=== PATIENT | male | born 1945 ===

== ENCOUNTER 2018-08-02 13:58 | Observation (INO) | payer MEDICARE ==
[2018-08-02 14:40] LABS: BASO % 0.3 % (0.0-2.0); EOS # 0.1 K/uL (0.0-0.7); EOS % 0.9 % (0.0-4.0); HEMOGLOBIN 10.8 g/dL (12.0-18.0); LYMPH # 2.1 K/uL (1.0-4.3); LYMPH % 23.5 % (20.0-40.0); MEAN CORPUSCULAR HEMOGLOBIN 25.5 pg (27.0-31.0); MEAN CORPUSCULAR HGB CONC 33.1 g/dL (33.0-37.0); MEAN PLATELET VOLUME 7.4 fL (7.2-11.7); MONO # 0.8 K/uL (0.0-0.8); MONO % 8.5 % (0.0-10.0); NEUT % 66.8 % (50.0-75.0); RBC 4.23 Mil/uL (4.40-5.90); RED CELL DISTRIBUTION WIDTH 17.1 % (11.5-14.5)
[2018-08-02 14:42] LABS: MEAN CELL VOLUME 77.3 fL (80.0-94.0)
[2018-08-02 14:49] LABS: PARTIAL THROMBOPLASTIN TIME 28.2 SECONDS (21-34); PROTHROMBIN TIME 11.2 SECONDS (9.7-12.2)
--- NOTE | 2018-08-02 14:58 | C.PDOC ---
History Of Present Illness 73-year-old male, whose PMHx includes HTN and Hypothyroidism, presents to the ED from home after reportedly having a syncopal episode prior to arrival. Patient states he had the syncopal episode while he was sitting on his couch. Patient states he was at baseline before and after the episode. He reports having a similar episode with unknown etiology while he was in [place]. Patient denies nausea, vomiting. Time Seen by Provider: 08/02/18 14:13 Chief Complaint (Nursing): Weakness/Neurological Deficit History Per: Patient History/Exam Limitations: no limitations Onset/Duration Of Symptoms: Hrs Current Symptoms Are (Timing): Still Present Past Medical History Reviewed: Historical Data, Nursing Documentation, Vital Signs Vital Signs: Last Vital Signs Temp 97.9 F 08/02/18 14:13 Pulse 74 08/02/18 14:13 Resp 16 08/02/18 14:13 BP 108/66 08/02/18 14:13 Pulse Ox 100 08/02/18 14:13 Primary Care Provider: Augie Fabian - Medical History PMH: HTN, Hypothyroidism Surgical History: No Surg Hx Family History: States: Unknown Family Hx - Social History Hx Alcohol Use: No Hx Substance Use: No - Immunization History Hx Tetanus Toxoid Vaccination: No Hx Influenza Vaccination: Yes Hx Pneumococcal Vaccination: No Review Of Systems Gastrointestinal: Negative for: Nausea, Vomiting Neurological: Positive for: Other (syncopal episode ) Physical Exam - Physical Exam Appears: Non-toxic, No Acute Distress Skin: Normal Color, Warm, Dry Head: Atraumatic, Normacephalic Eye(s): bilateral: Normal Inspection, PERRL, EOMI Oral Mucosa: Moist Neck: Supple Chest: Symmetrical, No Deformity, No Tenderness Cardiovascular: Rhythm Regular, No Murmur Respiratory: Normal Breath Sounds, No Rales, No Rhonchi, No Wheezing Gastrointestinal/Abdominal: Soft, No Tenderness, No Guarding, No Rebound Extremity: Normal ROM, Capillary Refill (less than 2 seconds) Neurological/Psych: Oriented x3, Normal Speech, Normal Cognition ED Course And Treatment - Laboratory Results Result Diagrams: 08/02/18 14:35 08/02/18 14:35 Lab Results: PT 11.2 SECONDS (9.7-12.2) 08/02/18 14:35 INR 1.0 08/02/18 14:35 APTT 28.2 SECONDS (21-34) 08/02/18 14:35 ECG: Interpreted By Me, Viewed By Me ECG Rhythm: Sinus Rhythm Interpretation Of ECG: Normal Sinus Rhythm at rate 72bpm. No ST/T wave changes. Rate From EC O2 Sat by Pulse Oximetry: 100 (on RA ) Pulse Ox Interpretation: Normal Medical Decision Making Medical Decision Making: syncope ro metabolic cardiac intracranil infecitous etioloyg Progress: Bloodwork, urinalysis, CXR, CT Head and EKG ordered and reviewed. ' labs ct neg. pt aystmpomatic in er. in nad. will obs. dr rick martinez accepts. Disposition - Disposition Disposition: HOSPITALIZED Disposition Time: 19:00 Condition: STABLE - Clinical Impression Clinical Impression: Syncope - Scribe Statement The provider has reviewed the documentation as recorded by the Scribe (Tabatha Nam) Provider Attestation: All medical record entries made by the Scribe were at my direction and personally dictated by me. I have reviewed the chart and agree that the record accurately reflects my personal performance of the history, physical exam, medical decision making, and the department course for this patient. I have also personally directed, reviewed, and agree with the discharge instructions and disposition. Decision To Admit - Pt Status Changed To: Hospital Disposition Of: Observation - . Bed Request Type: Telemetry Admitting Physician: Car Nam Patient Diagnosis: Syncope
[2018-08-02 15:00] LABS: ALB/GLOB RATIO 1.2 (1.0-2.1); ALBUMIN 3.7 g/dL (3.5-5.0); ALT/SGPT 19 U/L (21-72); AST/SGOT 25 U/L (17-59); BLOOD UREA NITROGEN 16 mg/dL (9-20); CALCIUM 8.9 mg/dl (8.6-10.4); GFR NON-AFRICAN AMERICAN 40
--- NOTE | 2018-08-02 15:22 | RAD ---
HISTORY: chest pain COMPARISON: None available TECHNIQUE: Chest, one view. FINDINGS: LUNGS: No focal consolidation. Please note that chest x-ray has limited sensitivity for the detection of pulmonary masses. PLEURA: No significant pleural effusion identified. No definite pneumothorax . CARDIOVASCULAR: Heart size appears top normal. Atherosclerotic calcifications of the aorta. OSSEOUS STRUCTURES: Osseous demineralization. Degenerative changes. VISUALIZED UPPER ABDOMEN: Unremarkable. OTHER FINDINGS: None. IMPRESSION: No acute findings identified. Incidental findings as above.
[2018-08-02 15:48] LABS: SQUAMOUS EPITHIAL 1 /hpf (0-5); URINE BACTERIA RARE (<OCC); URINE BILIRUBIN NEGATIVE (NEGATIVE); URINE BLOOD NEGATIVE (NEGATIVE); URINE CLARITY Clear (Clear); URINE COLOR Yellow (YELLOW); URINE GLUCOSE (UA) 1+ mg/dL (Normal); URINE HYALINE CAST >20 /lpf (0-2); URINE LEUKOCYTE ESTERASE NEG Leu/uL (Negative); URINE PROTEIN 2+ mg/dL (NEGATIVE); URINE UROBILINOGEN NORMAL mg/dL (0.2-1.0)
--- NOTE | 2018-08-02 16:21 | CT ---
Date of service: 08/02/2018 PROCEDURE: CT HEAD WITHOUT CONTRAST. HISTORY: syncope COMPARISON: None available TECHNIQUE: Axial computed tomography images were obtained through the head/brain without intravenous contrast. Radiation dose: Total exam DLP = 1086.07 mGy-cm. This CT exam was performed using one or more of the following dose reduction techniques: Automated exposure control, adjustment of the mA and/or kV according to patient size, and/or use of iterative reconstruction technique. FINDINGS: HEMORRHAGE: No intracranial hemorrhage. BRAIN: Diffuse atrophy with prominence of the ventricles and sulci noted. No mass effect or edema. Intracranial atherosclerosis. Moderate to severe scattered periventricular and subcortical white matter hypodensities, which are nonspecific, but often seen with chronic microvascular ischemic disease. Please note that MRI with diffusion imaging is more sensitive in the detection of acute ischemic event. VENTRICLES: No hydrocephalus. CALVARIUM: Unremarkable. PARANASAL SINUSES: Unremarkable as visualized. No significant inflammatory changes. MASTOID AIR CELLS: Unremarkable as visualized. No inflammatory changes. OTHER FINDINGS: None. IMPRESSION: Moderate to severe nonspecific white matter changes.
--- NOTE | 2018-08-02 21:22 | CP.PCM.HP ---
History of Present Illness - History of Present Illness History of Present Illness: 73-year-old [place] male non-smoker non-EtOH abuser with history of hypothyroidism history of hypertension not controlled not taking the medications regularly was brought in the emergency room with possible syncopal episode while sitting on the couch patient became weak was at the bedside eventually brought to the emergency room after a brief episode of few seconds as per the family and the daughter works in the hospital so I called the daughter daughter came up discussed with the patient's daughter and who is at bedside patient denied any tonic-clonic movement denied any headache denied any prior chest pain denied any prior dizziness just felt weak on one side eventually patient was hospitalized denies nausea vomiting hematochezia hematuria denies palpitation denies any heart problem Discussed with the PMD Medical History PMH: HTN, Hypothyroidism Surgical History: No Surg Hx Family History: States: Unknown Family Hx - Social History Hx Alcohol Use: No Hx Substance Use: No - Immunization History Hx Tetanus Toxoid Vaccination: No Hx Influenza Vaccination: Yes Hx Pneumococcal Vaccination: No Review Of Systems Gastrointestinal: Negative for: Nausea, Vomiting Neurological: Positive for: Other (syncopal episode ) resp no sob no chest pain cvs no chest pain skin senile muskuloskeltal no pain heent neg others as per hpi Present on Admission - Present on Admission Any Indicators Present on Admission: No Past Patient History - Infectious Disease Hx of Infectious Diseases: None - Past Social History Smoking Status: Never Smoked - CARDIAC Hx Hypertension: Yes - ENDOCRINE/METABOLIC Hx Hypothyroidism: Yes - PSYCHIATRIC Hx Substance Use: No - SURGICAL HISTORY Hx Surgeries: Yes Other/Comment: Lower back pain. - ANESTHESIA Hx Anesthesia: Yes Hx Anesthesia Reactions: No Hx Malignant Hyperthermia: No Meds Allergies/Adverse Reactions: Allergies Allergy/AdvReac Type Severity Reaction Status Date / Time No Known Allergies Allergy Verified 08/02/18 14:12 Physical Exam - Constitutional Appears: Well - Head Exam Head Exam: ATRAUMATIC, NORMAL INSPECTION, NORMOCEPHALIC - Eye Exam Eye Exam: EOMI, Normal appearance, PERRL Pupil Exam: NORMAL ACCOMODATION, PERRL - ENT Exam ENT Exam: Mucous Membranes Moist, Normal Exam - Neck Exam Neck exam: Positive for: Normal Inspection - Respiratory Exam Respiratory Exam: Decreased Breath Sounds - Cardiovascular Exam Cardiovascular Exam: REGULAR RHYTHM, +S1, +S2 - GI/Abdominal Exam GI & Abdominal Exam: Diminished Bowel Sounds, Soft - Rectal Exam Rectal Exam: Deferred - Neurological Exam Neurological exam: Oriented x3 Results - Vital Signs Recent Vital Signs: Last Vital Signs Temp 98.5 F 08/02/18 20:30 Pulse 66 08/02/18 20:30 Resp 18 08/02/18 20:30 BP 205/114 H 08/02/18 20:30 Pulse Ox 100 08/02/18 20:30 - Labs Result Diagrams: 08/04/18 07:59 08/04/18 07:59 Labs: Laboratory Results - last 24 hr 08/02/18 08/02/18 08/02/18 14:35 14:35 14:35 WBC 9.0 D RBC 4.23 L Hgb 10.8 L Hct 32.7 L MCV 77.3 L D MCH 25.5 L MCHC 33.1 RDW 17.1 H Plt Count 245 MPV 7.4 Neut % (Auto) 66.8 Lymph % (Auto) 23.5 [place] % (Auto) 8.5 Eos % (Auto) 0.9 Baso % (Auto) 0.3 Neut # (Auto) 6.0 Lymph # (Auto) 2.1 [place] # (Auto) 0.8 Eos # (Auto) 0.1 Baso # (Auto) 0.0 PT 11.2 INR 1.0 APTT 28.2 Sodium 138 Potassium 3.7 Chloride 107 Carbon Dioxide 19 L Anion Gap 16 BUN 16 Creatinine 1.7 H Est GFR ( Amer) 48 Est GFR (Non-Af Amer) 40 POC Glucose (mg/dL) Random Glucose 181 H D Calcium 8.9 Total Bilirubin 0.4 AST 25 ALT 19 L Alkaline Phosphatase 72 Troponin I < 0.0120 Total Protein 6.8 Albumin 3.7 Globulin 3.1 Albumin/Globulin Ratio 1.2 Urine Color Urine Clarity Urine pH Ur Specific [place] Urine Protein Urine Glucose (UA) Urine Ketones Urine Blood Urine Nitrate Urine Bilirubin Urine Urobilinogen Ur Leukocyte Esterase Urine WBC (Auto) Urine RBC (Auto) Ur Squamous Epith Cells Urine Bacteria Hyaline Casts 08/02/18 08/02/18 14:39 15:33 WBC RBC Hgb Hct MCV MCH MCHC RDW Plt Count MPV Neut % (Auto) Lymph % (Auto) [place] % (Auto) Eos % (Auto) Baso % (Auto) Neut # (Auto) Lymph # (Auto) [place] # (Auto) Eos # (Auto) Baso # (Auto) PT INR APTT Sodium Potassium Chloride Carbon Dioxide Anion Gap BUN Creatinine Est GFR ( Amer) Est GFR (Non-Af Amer) POC Glucose (mg/dL) 185 H Random Glucose Calcium Total Bilirubin AST ALT Alkaline Phosphatase Troponin I Total Protein Albumin Globulin Albumin/Globulin Ratio Urine Color Yellow Urine Clarity Clear Urine pH 6.0 Ur Specific [place] 1.013 Urine Protein 2+ H Urine Glucose (UA) 1+ H Urine Ketones Negative Urine Blood Negative Urine Nitrate Negative Urine Bilirubin Negative Urine Urobilinogen Normal Ur Leukocyte Esterase Neg Urine WBC (Auto) 5 Urine RBC (Auto) < 1 Ur Squamous Epith Cells 1 Urine Bacteria Rare Hyaline Casts >20 H Assessment & Plan - Assessment and Plan (Free Text) Plan: Moderate to high complexity of care. Plan of care discussed with patient &/or family & staff. Medications reviewed and reconciled. Labs reviewed. Vitals reviewed. hydralazine IV status post because of blood pressure more than 200 Aspirin Coreg Chlorothiazide Amlodipine Protonix Lovenox Cardiology consult with Dr. Levi Ndiaye Will order echo TAMIKA x3 every 8 Monitor the blood pressure closely Will slowly slowly control her blood pressure cardio
[2018-08-02 23:28] LABS: CK-MB 0.9 ng/mL (0.0-3.38); TROPONIN I 0.064 ng/mL (0.00-0.120)
[2018-08-03 07:31] LABS: CK-MB 0.73 ng/mL (0.0-3.38); TROPONIN I 0.065 ng/mL (0.00-0.120)
[2018-08-03] MEDS: Pantoprazole 40 mg EC Tab PO SCH (09:49)
[2018-08-03] MEDS ORDERED: Enoxaparin 40 mg Syringe SC SCH (10:45)
--- NOTE | 2018-08-03 14:35 | CP.PCM.CON ---
History of Present Illness - History of Present Illness History of Present Illness: 73 yo man, was in the chair, appeared to be asleep, his could not wake him. 911 was called. Pt is a non smoker, not a diabetic, has HTN. BP was 108/66 in the ER, now high today. Denies chest pressure or CYR. Translation provided daughter. No previou syncope ECG is nsr, mildly long QT, head ct neg. CR was 1.7, tni negative, mildly anemic According to his daughter, he has had a poor appetite and has lost weight. Review of Systems - Review of Systems All systems: reviewed and no additional remarkable complaints except (as above) Past Patient History - Infectious Disease Hx of Infectious Diseases: None - Past Social History Smoking Status: Never Smoked - CARDIAC Hx Hypertension: Yes - ENDOCRINE/METABOLIC Hx Hypothyroidism: Yes - PSYCHIATRIC Hx Substance Use: No - SURGICAL HISTORY Hx Surgeries: Yes Other/Comment: Lower back pain. - ANESTHESIA Hx Anesthesia: Yes Hx Anesthesia Reactions: No Hx Malignant Hyperthermia: No Meds Allergies/Adverse Reactions: Allergies Allergy/AdvReac Type Severity Reaction Status Date / Time No Known Allergies Allergy Verified 08/02/18 14:12 - Medications Medications: Current Medications Amlodipine Besylate (Norvasc) 10 mg PO DAILY [facility] Last Admin: 08/03/18 09:47 Dose: 10 mg Aspirin (Aspirin) 325 mg PO DAILY [facility] Last Admin: 08/03/18 09:46 Dose: 325 mg Carvedilol (Coreg) 6.25 mg PO DAILY [facility] Last Admin: 08/03/18 09:47 Dose: 6.25 mg Heparin Sodium (Porcine) (Heparin) 5,000 units SC Q12H [facility] Last Admin: 08/03/18 10:55 Dose: 5,000 units Hydrochlorothiazide (Microzide) 12.5 mg PO DAILY [facility] Last Admin: 08/03/18 09:47 Dose: 12.5 mg Pantoprazole Sodium (Protonix Ec Tab) 40 mg PO DAILY [facility] Last Admin: 08/03/18 09:49 Dose: 40 mg Physical Exam - Constitutional Appears: Older Than Stated Age - Head Exam Head Exam: ATRAUMATIC - Eye Exam Eye Exam: EOMI Pupil Exam: NORMAL ACCOMODATION - ENT Exam ENT Exam: Mucous Membranes Moist - Respiratory Exam Respiratory Exam: Clear to Auscultation Bilateral - Cardiovascular Exam Cardiovascular Exam: REGULAR RHYTHM - GI/Abdominal Exam GI & Abdominal Exam: Normal Bowel Sounds - Extremities Exam Extremities exam: Positive for: normal inspection - Back Exam Back exam: NORMAL INSPECTION - Neurological Exam Neurological exam: Alert, Oriented x3, Reflexes Normal - Psychiatric Exam Psychiatric exam: Normal Affect, Normal Mood - Skin Skin Exam: Dry, Normal Color Results - Vital Signs Recent Vital Signs: Last Vital Signs Temp 98.4 F 08/03/18 08:07 Pulse 66 08/03/18 12:33 Resp 20 08/03/18 08:07 BP 123/75 08/03/18 14:00 Pulse Ox 95 08/03/18 12:00 - Labs Result Diagrams: 08/02/18 14:35 08/02/18 14:35 Labs: Laboratory Results - last 24 hr 08/02/18 08/02/18 08/02/18 14:35 14:35 14:35 WBC 9.0 D RBC 4.23 L Hgb 10.8 L Hct 32.7 L MCV 77.3 L D MCH 25.5 L MCHC 33.1 RDW 17.1 H Plt Count 245 MPV 7.4 Neut % (Auto) 66.8 Lymph % (Auto) 23.5 [place] % (Auto) 8.5 Eos % (Auto) 0.9 Baso % (Auto) 0.3 Neut # (Auto) 6.0 Lymph # (Auto) 2.1 [place] # (Auto) 0.8 Eos # (Auto) 0.1 Baso # (Auto) 0.0 PT 11.2 INR 1.0 APTT 28.2 Sodium 138 Potassium 3.7 Chloride 107 Carbon Dioxide 19 L Anion Gap 16 BUN 16 Creatinine 1.7 H Est GFR ( Amer) 48 Est GFR (Non-Af Amer) 40 POC Glucose (mg/dL) Random Glucose 181 H D Calcium 8.9 Total Bilirubin 0.4 AST 25 ALT 19 L Alkaline Phosphatase 72 Total Creatine Kinase CK-MB (Mass) Troponin I < 0.0120 Total Protein 6.8 Albumin 3.7 Globulin 3.1 Albumin/Globulin Ratio 1.2 Urine Color Urine Clarity Urine pH Ur Specific [place] Urine Protein Urine Glucose (UA) Urine Ketones Urine Blood Urine Nitrate Urine Bilirubin Urine Urobilinogen Ur Leukocyte Esterase Urine WBC (Auto) Urine RBC (Auto) Ur Squamous Epith Cells Urine Bacteria Hyaline Casts 08/02/18 08/02/18 08/02/18 14:39 15:33 22:25 WBC RBC Hgb Hct MCV MCH MCHC RDW Plt Count MPV Neut % (Auto) Lymph % (Auto) [place] % (Auto) Eos % (Auto) Baso % (Auto) Neut # (Auto) Lymph # (Auto) [place] # (Auto) Eos # (Auto) Baso # (Auto) PT INR APTT Sodium Potassium Chloride Carbon Dioxide Anion Gap BUN Creatinine Est GFR ( Amer) Est GFR (Non-Af Amer) POC Glucose (mg/dL) 185 H Random Glucose Calcium Total Bilirubin AST ALT Alkaline Phosphatase Total Creatine Kinase 54 L CK-MB (Mass) 0.90 Troponin I 0.0640 Total Protein Albumin Globulin Albumin/Globulin Ratio Urine Color Yellow Urine Clarity Clear Urine pH 6.0 Ur Specific [place] 1.013 Urine Protein 2+ H Urine Glucose (UA) 1+ H Urine Ketones Negative Urine Blood Negative Urine Nitrate Negative Urine Bilirubin Negative Urine Urobilinogen Normal Ur Leukocyte Esterase Neg Urine WBC (Auto) 5 Urine RBC (Auto) < 1 Ur Squamous Epith Cells 1 Urine Bacteria Rare Hyaline Casts >20 H 08/03/18 06:40 WBC RBC Hgb Hct MCV MCH MCHC RDW Plt Count MPV Neut % (Auto) Lymph % (Auto) [place] % (Auto) Eos % (Auto) Baso % (Auto) Neut # (Auto) Lymph # (Auto) [place] # (Auto) Eos # (Auto) Baso # (Auto) PT INR APTT Sodium Potassium Chloride Carbon Dioxide Anion Gap BUN Creatinine Est GFR ( Amer) Est GFR (Non-Af Amer) POC Glucose (mg/dL) Random Glucose Calcium Total Bilirubin AST ALT Alkaline Phosphatase Total Creatine Kinase 50 L CK-MB (Mass) 0.73 Troponin I 0.0650 Total Protein Albumin Globulin Albumin/Globulin Ratio Urine Color Urine Clarity Urine pH Ur Specific [place] Urine Protein Urine Glucose (UA) Urine Ketones Urine Blood Urine Nitrate Urine Bilirubin Urine Urobilinogen Ur Leukocyte Esterase Urine WBC (Auto) Urine RBC (Auto) Ur Squamous Epith Cells Urine Bacteria Hyaline Casts - EKG Data EKG Interpreted by: Myself EKG shows normal: Sinus rhythm (mild long qt, nsr) Assessment & Plan - Assessment and Plan (Free Text) Assessment: 1. Although bp was lower yesterday in the ED, a systolic BP of 108 should not result in LOC. BP was high this am, but after meds, 123 systolic. I will stop hctz, to allow for a higher BP in this elderly patient after meds. 2. Although qtc is a little long, no arrhythmias is noted. Will check mag level. 3. Echo odered to assess EF. 4. If no etiology of LOC is identified, pt can have event recorder for home.
--- NOTE | 2018-08-03 19:26 | CP.PCM.PN ---
Subjective - Date & Time of Evaluation Date of Evaluation: 08/03/18 Time of Evaluation: 11:25 - Subjective Subjective: patient examined today no nausea no vomiting no dizziness no seixure like activity no more syncope awaiting neuro and cardio no diarrhea no fever no shortness of breath Objective - Vital Signs/Intake and Output Vital Signs (last 24 hours): Temp Pulse Resp BP Pulse Ox 98.8 F 66 18 134/81 95 08/03/18 15:13 08/03/18 15:13 08/03/18 15:13 08/03/18 15:13 08/03/18 15:45 Intake and Output: 08/03/18 08/04/18 18:59 06:59 Intake Total 480 Output Total 400 Balance 80 - Medications Medications: Current Medications Amlodipine Besylate (Norvasc) 10 mg PO DAILY [facility] Last Admin: 08/03/18 09:47 Dose: 10 mg Aspirin (Aspirin) 325 mg PO DAILY [facility] Last Admin: 08/03/18 09:46 Dose: 325 mg Carvedilol (Coreg) 6.25 mg PO DAILY [facility] Last Admin: 08/03/18 09:47 Dose: 6.25 mg Heparin Sodium (Porcine) (Heparin) 5,000 units SC Q12H [facility] Last Admin: 08/03/18 10:55 Dose: 5,000 units Pantoprazole Sodium (Protonix Ec Tab) 40 mg PO DAILY [facility] Last Admin: 08/03/18 09:49 Dose: 40 mg - Labs Labs: 08/02/18 14:35 08/02/18 14:35 PT 11.2 SECONDS (9.7-12.2) 08/02/18 14:35 INR 1.0 08/02/18 14:35 APTT 28.2 SECONDS (21-34) 08/02/18 14:35 - Constitutional Appears: Well - Head Exam Head Exam: ATRAUMATIC, NORMAL INSPECTION, NORMOCEPHALIC - Eye Exam Eye Exam: EOMI, Normal appearance, PERRL Pupil Exam: NORMAL ACCOMODATION, PERRL - ENT Exam ENT Exam: Mucous Membranes Moist, Normal Exam - Neck Exam Neck Exam: Full ROM, Normal Inspection. absent: Lymphadenopathy - Respiratory Exam Respiratory Exam: Decreased Breath Sounds - Cardiovascular Exam Cardiovascular Exam: REGULAR RHYTHM, +S1, +S2 - GI/Abdominal Exam GI & Abdominal Exam: Soft, Diminished Bowel Sounds - Rectal Exam Rectal Exam: Deferred - Neurological Exam Neurological Exam: Oriented x3 Assessment and Plan - Assessment and Plan (Free Text) Plan: plan discussed with patient and family moderate complexity of care medications reviewed vitals reviewed labs reviewed aspirin coreg heparin norvasc protonix ec tab hemoglobin 10.8 hematocrit 32.7 bicarbonate 19 Creatinine 1.7 sugar 181 on arrival patient's blood pressure was high Chest x-ray official report seen CT head negative EKG normal sinus rhythm 72/min nonspecific ST-T wave changes Cardiology consultation Neurology consultations Amlodipine Aspirin Coreg Heparin Hydrochlorothiazide Pantoprazole Monitor the blood pressure tightly Follow-up with the abnormal radiology and labs
--- NOTE | 2018-08-03 23:39 | CON ---
DATE: 08/03/2018 HISTORY OF PRESENT ILLNESS: This is a 73-year-old male with past medical history of hypertension, hypothyroidism, came to the emergency room after having a syncopal episode and the patient was sitting on his couch when he had episode of syncope and sitting next to him and similar episode while he was in [place] and denies any nausea, vomiting, blurred vision, or weakness. PAST MEDICAL HISTORY: As above. SOCIAL HISTORY: Does not smoke. Does not drink. PHYSICAL EXAMINATION: VITAL SIGNS: Blood pressure 108/66. HEENT: Normocephalic, atraumatic. NECK: Supple. NEUROLOGIC: Alert, awake, oriented x3. No aphasia. Cranial nerves II through XII are tested. Pupils reactive. EOMs intact. Visual cárdenas are full. No facial asymmetry. Tongue is midline. Motor examination: Moves all the extremities equally. Tone normal. Deep tendon reflexes 1+. Both plantars are downgoing. Sensory appears intact. Cerebellar, gait deferred. IMPRESSION: Syncope, less likely seizures. No tongue bite. No urinary incontinence. CAT scan of the head was done, which was reported as negative and continue present management. We will follow up. Mike Rowan MD
[2018-08-04 08:08] LABS: BASO % 0.3 % (0.0-2.0); EOS # 0.2 K/uL (0.0-0.7); EOS % 3.4 % (0.0-4.0); HEMOGLOBIN 11.6 g/dL (12.0-18.0); LYMPH # 1.6 K/uL (1.0-4.3); LYMPH % 31.7 % (20.0-40.0); MEAN CELL VOLUME 76.4 fL (80.0-94.0); MEAN CORPUSCULAR HEMOGLOBIN 25.6 pg (27.0-31.0); MEAN CORPUSCULAR HGB CONC 33.6 g/dL (33.0-37.0); MEAN PLATELET VOLUME 7.3 fL (7.2-11.7); MONO # 0.4 K/uL (0.0-0.8); NEUT # 2.9 K/uL (1.8-7.0); NEUT % 56.6 % (50.0-75.0); NRBC % 0.1 % (0.0-2.0); RBC 4.51 Mil/uL (4.40-5.90); WHITE BLOOD COUNT 5.2 K/uL (4.8-10.8)
[2018-08-04 08:27] LABS: ALB/GLOB RATIO 1.2 (1.0-2.1); ALBUMIN 4.1 g/dL (3.5-5.0); CALCIUM 9.5 mg/dl (8.6-10.4)
[2018-08-04] MEDS: Pantoprazole 40 mg EC Tab PO SCH (09:45)
[2018-08-04] MEDS ORDERED: Potassium Chloride 20 mEq ER Tab PO ONE (10:00)
--- NOTE | 2018-08-04 12:42 | CARD ---
APPROVED REPORT Date of service: 08/04/2018 EXAM: Two-dimensional and M-mode echocardiogram with Doppler and color Doppler. Other Information Quality : GoodRhythm : NSR INDICATION Syncope RISK FACTORS Hypertension 2D DIMENSIONS IVSd1.1 (0.7-1.1cm)LVDd3.6 (3.9-5.9cm) PWd1.4 (0.7-1.1cm)LA [id number] (18-58mL) LVDs2.7 (2.5-4.0cm)FS (%) 26.2 % LVEF (%)52.4 (>50%)LVEF (Rea's)68.50 % M-Mode DIMENSIONS Left Atrium (MM)3.04 (2.5-4.0cm)IVSd1.42 (0.7-1.1cm) Aortic Root3.98 (2.2-3.7cm)LVDd5.40 (4.0-5.6cm) Aortic Cusp Exc.1.36 (1.5-2.0cm)PWd1.29 (0.7-1.1cm) FS (%) 46 %LVDs2.93 (2.0-3.8cm) LVEF (%)77 (>50%) Aortic Valve AI P 1/2 [id number] Mitral Valve MV E Vjbdpvyb25.3cm/sMV A Udtpehck55.0cm/sE/A ratio0.5 TDI Lateral E' Peak V4.74cm/sMedial E' Peak V5.06cm/sE/Lateral E'9.3 E/Medial E'8.8 Tricuspid Valve TR Peak [id number]/sTR Peak [id number] LEFT VENTRICLE The left ventricle is normal size. There is mild concentric left ventricular hypertrophy. Left ventricle systolic function is normal. The Ejection Fraction is 65-70%. There is normal LV segmental wall motion. Transmitral Doppler flow pattern is Grade I-abnormal relaxation pattern. There is no ventricular septal defect visualized. RIGHT VENTRICLE The right ventricle is normal size. The right ventricular systolic function is normal. ATRIA The left atrium is mildly dilated. The right atrium size is normal. AORTIC VALVE The aortic valve is mildly sclerotic. The aortic valve is tri-cuspid. There is mild aortic regurgitation. There is no aortic valvular stenosis. MITRAL VALVE Mitral annular calcification is borderline. There is no evidence of mitral valve prolapse. There is no mitral valve regurgitation noted. TRICUSPID VALVE The tricuspid valve is normal in structure. There is trace tricuspid regurgitation. Right ventricular systolic pressure is estimated at less than 30 mmHg. There is no pulmonary hypertension. PULMONIC VALVE The pulmonary valve is normal in structure. There is trace to mild pulmonic valvular regurgitation. GREAT VESSELS The aortic root is normal in size. The ascending aorta is Mildly dilated. 4.4 cm The IVC is normal in size and collapses >50% with inspiration. PERICARDIAL EFFUSION There is no pericardial effusion. <Conclusion> There is mild concentric left ventricular hypertrophy. Left ventricle systolic function is normal. The Ejection Fraction is 65-70%. Transmitral Doppler flow pattern is Grade I-abnormal relaxation pattern. There is mild aortic regurgitation. The ascending aorta is Mildly dilated. 4.4 cm
--- NOTE | 2018-08-04 13:42 | CARD ---
APPROVED REPORT Date of service: 08/02/2018 EKG Measurement Heart [id number] <Conclusion> Normal sinus rhythm Prolonged QT Abnormal ECG
--- NOTE | 2018-08-04 14:01 | CP.PCM.PCO ---
Physician Communication Note - Physician Communication Note Physician Communication Note: need better htn control. fluid intake anf f/u as outpt.
--- NOTE | 2018-08-04 19:38 | CP.PCM.PN ---
Subjective - Date & Time of Evaluation Date of Evaluation: 08/04/18 Time of Evaluation: 10:26 - Subjective Subjective: patient examined today no nausea no vomiting no dizziness no diarrhea no fever no shortness of breath Progress communications from Dr. Juma Rowan noted with controlling the blood pressure blood pressure is well controlled now with the amlodipine Coreg and heparin status post potassium supplementation possible discharge tomorrow dis cussed with the patient's and family Objective - Vital Signs/Intake and Output Vital Signs (last 24 hours): Temp Pulse Resp BP Pulse Ox 98.2 F 65 20 138/83 97 08/04/18 15:15 08/04/18 15:15 08/04/18 15:15 08/04/18 15:15 08/04/18 15:15 Intake and Output: 08/04/18 08/05/18 18:59 06:59 Intake Total 600 Output Total 400 Balance 200 - Medications Medications: Current Medications Amlodipine Besylate (Norvasc) 10 mg PO DAILY [facility] Last Admin: 08/04/18 09:45 Dose: 10 mg Aspirin (Aspirin) 325 mg PO DAILY [facility] Last Admin: 08/04/18 09:45 Dose: 325 mg Carvedilol (Coreg) 6.25 mg PO DAILY [facility] Last Admin: 08/04/18 09:45 Dose: 6.25 mg Heparin Sodium (Porcine) (Heparin) 5,000 units SC Q12H [facility] Last Admin: 08/04/18 09:46 Dose: 5,000 units Pantoprazole Sodium (Protonix Ec Tab) 40 mg PO DAILY [facility] Last Admin: 08/04/18 09:45 Dose: 40 mg - Labs Labs: 08/04/18 07:59 08/04/18 07:59 PT 11.2 SECONDS (9.7-12.2) 08/02/18 14:35 INR 1.0 08/02/18 14:35 APTT 28.2 SECONDS (21-34) 08/02/18 14:35 - Constitutional Appears: Well - Head Exam Head Exam: ATRAUMATIC, NORMAL INSPECTION, NORMOCEPHALIC - Eye Exam Eye Exam: EOMI, Normal appearance, PERRL Pupil Exam: NORMAL ACCOMODATION, PERRL - ENT Exam ENT Exam: Mucous Membranes Moist, Normal Exam - Neck Exam Neck Exam: Full ROM, Normal Inspection. absent: Lymphadenopathy - Respiratory Exam Respiratory Exam: Decreased Breath Sounds - Cardiovascular Exam Cardiovascular Exam: REGULAR RHYTHM, +S1, +S2 - GI/Abdominal Exam GI & Abdominal Exam: Soft, Diminished Bowel Sounds - Rectal Exam Rectal Exam: Deferred - Neurological Exam Neurological Exam: Oriented x3 Assessment and Plan (1) HTN (hypertension) Status: Acute (2) Syncope Status: Acute (3) Hypothyroidism Status: Acute - Assessment and Plan (Free Text) Plan: plan discussed with patient moderate complexity of care medications reviewed vitals reviewed labs reviewed aspirin coreg heparin norvasc protonix ec t Status post neuro Moderate to high complexity of care. Plan of care discussed with patient &/or family & staff. Medications reviewed and reconciled. Labs reviewed. Vitals reviewed.
[2018-08-05 04:21] VITALS: RESP 20
[2018-08-05] MEDS ORDERED: Potassium Chloride 10 mEq ER Tab PO SCH (08:00)
[2018-08-05 08:15] VITALS: PULSE 77; TEMP 98.1; O2SAT 100
--- NOTE | 2018-08-05 08:27 | CP.PCM.DIS ---
Provider - Provider Date of Admission: 08/02/18 16:27 Attending physician: Huber Nam MD Consults: 08/02/18 16:26 Physician Consult Routine Comment: Consulting Provider: Michael Nguyen Consulting Physician: Michael Nguyen Reason for Consult: syncope Physician Consult Routine Comment: Consulting Provider: Juma Rowan Consulting Physician: Juma Rowan Reason for Consult: syncope Time Spent in preparation of Discharge (in minutes): 25 Diagnosis - Discharge Diagnosis (1) HTN (hypertension) Status: Acute (2) Syncope Status: Acute (3) Hypothyroidism Status: Acute Hospital Course - Lab Results Lab Results: Most Recent Lab Values WBC 5.2 K/uL (4.8-10.8) 08/04/18 07:59 RBC 4.51 Mil/uL (4.40-5.90) 08/04/18 07:59 Hgb 11.6 g/dL (12.0-18.0) L 08/04/18 07:59 Hct 34.4 % (35.0-51.0) L 08/04/18 07:59 MCV 76.4 fL (80.0-94.0) L 08/04/18 07:59 MCH 25.6 pg (27.0-31.0) L 08/04/18 07:59 MCHC 33.6 g/dL (33.0-37.0) 08/04/18 07:59 RDW 17.0 % (11.5-14.5) H 08/04/18 07:59 Plt Count 229 K/uL (130-400) 08/04/18 07:59 MPV 7.3 fL (7.2-11.7) 08/04/18 07:59 Neut % (Auto) 56.6 % (50.0-75.0) 08/04/18 07:59 Lymph % (Auto) 31.7 % (20.0-40.0) 08/04/18 07:59 [place] % (Auto) 8.0 % (0.0-10.0) 08/04/18 07:59 Eos % (Auto) 3.4 % (0.0-4.0) 08/04/18 07:59 Baso % (Auto) 0.3 % (0.0-2.0) 08/04/18 07:59 Neut # (Auto) 2.9 K/uL (1.8-7.0) 08/04/18 07:59 Lymph # (Auto) 1.6 K/uL (1.0-4.3) 08/04/18 07:59 [place] # (Auto) 0.4 K/uL (0.0-0.8) 08/04/18 07:59 Eos # (Auto) 0.2 K/uL (0.0-0.7) 08/04/18 07:59 Baso # (Auto) 0.0 K/uL (0.0-0.2) 08/04/18 07:59 PT 11.2 SECONDS (9.7-12.2) 08/02/18 14:35 INR 1.0 08/02/18 14:35 APTT 28.2 SECONDS (21-34) 08/02/18 14:35 Sodium 135 mmol/L (132-148) 08/04/18 07:59 Potassium 3.5 mmol/L (3.6-5.2) L 08/04/18 07:59 Chloride 99 mmol/L (98-107) 08/04/18 07:59 Carbon Dioxide 27 mmol/L (22-30) 08/04/18 07:59 Anion Gap 13 (10-20) 08/04/18 07:59 BUN 15 mg/dL (9-20) 08/04/18 07:59 Creatinine 1.6 mg/dL (0.8-1.5) H 08/04/18 07:59 Est GFR ( Amer) 52 08/04/18 07:59 Est GFR (Non-Af Amer) 43 08/04/18 07:59 POC Glucose (mg/dL) 185 mg/dL (65-110) H 08/02/18 14:39 Random Glucose 148 mg/dL (75-110) H 08/04/18 07:59 Calcium 9.5 mg/dl (8.6-10.4) 08/04/18 07:59 Total Bilirubin 0.6 mg/dL (0.2-1.3) 08/04/18 07:59 AST 23 U/L (17-59) 08/04/18 07:59 ALT 19 U/L (21-72) L 08/04/18 07:59 Alkaline Phosphatase 74 U/L (38-126) 08/04/18 07:59 Total Creatine Kinase 50 U/L (55-170) L 08/03/18 06:40 CK-MB (Mass) 0.73 ng/mL (0.0-3.38) 08/03/18 06:40 Troponin I 0.0650 ng/mL (0.00-0.120) 08/03/18 06:40 Total Protein 7.6 g/dL (6.3-8.3) 08/04/18 07:59 Albumin 4.1 g/dL (3.5-5.0) 08/04/18 07:59 Globulin 3.5 gm/dL (2.2-3.9) 08/04/18 07:59 Albumin/Globulin Ratio 1.2 (1.0-2.1) 08/04/18 07:59 Urine Color Yellow (YELLOW) 08/02/18 15:33 Urine Clarity Clear (Clear) 08/02/18 15:33 Urine pH 6.0 (5.0-8.0) 08/02/18 15:33 Ur Specific [place] 1.013 (1.003-1.030) 08/02/18 15:33 Urine Protein 2+ mg/dL (NEGATIVE) H 08/02/18 15:33 Urine Glucose (UA) 1+ mg/dL (Normal) H 08/02/18 15:33 Urine Ketones Negative mg/dL (NEGATIVE) 08/02/18 15:33 Urine Blood Negative (NEGATIVE) 08/02/18 15:33 Urine Nitrate Negative (NEGATIVE) 08/02/18 15:33 Urine Bilirubin Negative (NEGATIVE) 08/02/18 15:33 Urine Urobilinogen Normal mg/dL (0.2-1.0) 08/02/18 15:33 Ur Leukocyte Esterase Neg [place]/uL (Negative) 08/02/18 15:33 Urine WBC (Auto) 5 /hpf (0-5) 08/02/18 15:33 Urine RBC (Auto) < 1 /hpf (0-3) 08/02/18 15:33 Ur Squamous Epith Cells 1 /hpf (0-5) 08/02/18 15:33 Urine Bacteria Rare (<OCC) 08/02/18 15:33 Hyaline Casts >20 /lpf (0-2) H 08/02/18 15:33 - Hospital Course Hospital Course: Admitted with the syncope status post CT chest negative status post neuro blood pressure control added 3 medications with the blood pressure discussed with the PMD also Patient is made aware that patients can be discharged today for further follow- up with the PMD Patient told to take the blood pressure medications regularly patient understood the patient is for the discharge will speak to the daughter again today later on I had a long conversation with the patient's last night patient is for discharge and refuses rehab Moderate to high complexity of care. Plan of care discussed with patient &/or family & staff. Medications reviewed and reconciled. Labs reviewed. Vitals reviewed. Discharge Exam - Head Exam Head Exam: ATRAUMATIC, NORMAL INSPECTION, NORMOCEPHALIC - Eye Exam Eye Exam: EOMI, Normal appearance, PERRL - ENT Exam ENT Exam: Mucous Membranes Moist - Respiratory Exam Respiratory Exam: Decreased Breath Sounds - Cardiovascular Exam Cardiovascular Exam: REGULAR RHYTHM, +S1, +S2 - GI/Abdominal Exam GI & Abdominal Exam: Diminished Bowel Sounds, Distended, Soft - Rectal Exam Rectal Exam: Deferred - Neurological Exam Neurological exam: CN II-XII Intact, Normal Gait, Oriented x3 Discharge Plan - Follow Up Plan Condition: STABLE Disposition: HOME/ ROUTINE Instructions: Syncope (DC), Syncope (GEN), Hypertension (DC), Hypertension (GEN)
[2018-08-05] MEDS: Pantoprazole 40 mg EC Tab PO SCH (09:11)
[2018-08-05 09:13] VITALS: BP 152/86
--- NOTE | 2018-08-05 10:59 | CP.PCM.PCO ---
Physician Communication Note - Physician Communication Note Physician Communication Note: Pt has Ac ao of 4.4 cm, and serial echo f/u advised.
--- NOTE | 2018-08-05 14:58 | CP.PCM.PN ---
Subjective - Date & Time of Evaluation Date of Evaluation: 08/05/18 Time of Evaluation: 14:57 - Subjective Subjective: patient seen and examing at the bedside Objective - Vital Signs/Intake and Output Vital Signs (last 24 hours): Temp Pulse Resp BP Pulse Ox 98.1 F 77 20 152/86 H 100 08/05/18 08:13 08/05/18 08:13 08/05/18 08:13 08/05/18 09:12 08/05/18 13:00 Intake and Output: 08/05/18 08/05/18 06:59 18:59 Intake Total 600 Output Total 400 Balance 200 - Medications Medications: Current Medications Amlodipine Besylate (Norvasc) 10 mg PO DAILY [facility] Last Admin: 08/05/18 09:11 Dose: 10 mg Aspirin (Aspirin) 325 mg PO DAILY [facility] Last Admin: 08/05/18 09:10 Dose: 325 mg Carvedilol (Coreg) 6.25 mg PO DAILY [facility] Last Admin: 08/05/18 09:11 Dose: 6.25 mg Heparin Sodium (Porcine) (Heparin) 5,000 units SC Q12H [facility] Last Admin: 08/05/18 11:45 Dose: 5,000 units Pantoprazole Sodium (Protonix Ec Tab) 40 mg PO DAILY [facility] Last Admin: 08/05/18 09:11 Dose: 40 mg Potassium Chloride (Klor-Con 10) 10 meq PO BRK [facility] Last Admin: 08/05/18 09:10 Dose: 10 meq - Labs Labs: 08/04/18 07:59 08/04/18 07:59 PT 11.2 SECONDS (9.7-12.2) 08/02/18 14:35 INR 1.0 08/02/18 14:35 APTT 28.2 SECONDS (21-34) 08/02/18 14:35 Assessment and Plan - Assessment and Plan (Free Text) Assessment: follow up with dr tierra cabrera in his office new prescription given norvasc 10 mg po daily htcz 12.5 mg po daily coreg 6.25 mg po daily protonix 40 mg po daily aspirin 81 mg po dialy activity as tolerated call dr tierra cabrera or go to the emergency room if symptom return or worsening
== END 2018-08-05 16:22 | disposition home or self-care (01) ==
LOC: C.ER 13:58 → C.9E 16:27 → C.6T 16:48
PROVIDERS: ADMIT Internal Medicine Nephrology; ATTEND Internal Medicine Nephrology
DX: R55 Syncope and collapse (principal); I10 Essential (primary) hypertension; I45.81 Long QT syndrome; R56.9 Unspecified convulsions; D64.9 Anemia, unspecified
CPT/HCPCS: 36415; 70450; 71045; 80053; 81001; 82948; 84484; 85025; 85610; 85730; 93005; 93306; 96374; 97112; 97116; 97162; 97530; 99285; G0378; G8978; G8979; J0360; J1644